=== PATIENT | male | born 2000 | race Caucasian/White ===

== ENCOUNTER 2022-04-13 16:37 | Emergency (ER) | payer OTHER, SELFPAY ==
[2022-04-13 17:15] VITALS: BP 115/61; PULSE 75; RESP 18; TEMP 36.8; O2SAT 98; BMI 22.8
--- NOTE | 2022-04-13 17:46 | HMH.EDUTC ---
[facility] [place] Disposition Clinical Impression: Cellulitis Qualifiers: Site of cellulitis: extremity Site of cellulitis of extremity: lower extremity Laterality: right Qualified Code(s): L03.115 - Cellulitis of right lower limb Disposition: Home, Self-Care Condition on Discharge: Good Instructions: Cellulitis, DI for Skin Abscess Additional Instructions: *Start antibiotic(s) immediately and be sure to take as ordered for the FULL length of time although you may be feeling better or start to see improvement in the next 24-48 hours *Monitor closely. Outlined redness so that you can monitor easier. Follow up immediately for new or worsening symptoms including but not limited to redness, swelling, streaking from site fever or chills. *Warm compress 15 minutes 3-4 times day *Never squeeze or pop these on your own. Seek immediate medical attention next time this occurs *Monitor Temp. Tylenol every 4 hours as needed and ibuprofen every 6 hours as needed (as long as your primary care doctor has told you that it is ok to take both. For fever, aches, pain. ER if no less that 101 despite Tylenol and ibuprofen Follow up with your family doctor/primary care physician in the next 48-72 hours if no improvement Straight to ER if any worsening of redness or fever chills or body aches Prescriptions: clindamycin HCL [Cleocin HCl] 300 mg PO Q6H 7 Days #28 cap Transmission Status: Pending to [id number] Mupirocin Calcium [Mupirocin 2% Cream 15gm] 1 applicatio TP TID 10 Days #15 gm Transmission Status: Pending to [id number] Referrals: Kaylan Rodgers [Primary Care Provider] - As needed Terry Covarrubias MD [Staff Physician] - Jethro Peoples MD [Staff Physician] - Time of Disposition: 18:03 Medical Decision Making - Mane Inquiry Pt receiving controlled substance: No Mane was queried for this patient: No Vital Signs: 04/13/22 17:15 Temperature 98.3 F Temperature Source Oral Pulse Rate [Right Brachial] 75 Respiratory Rate 18 Blood Pressure [Right Arm] 115/61 Blood Pressure Mean [Right Arm] 79 Blood Pressure Source [Right Arm] Automatic Cuff Blood Pressure Position [Right Arm] Sitting 02 Sat by Pulse Oximetry 98 Oxygen Delivery Method Room Air Orders (Tests/Meds): ORDERS Category Date Time Status Wound Culture and Gram Stain Stat Micro 04/13/22 17:25 Received [facility] [place] HPI - General Stated complaint: poss inf spot on R knee Time Seen by Provider: 04/13/22 17:46 Mode of Arrival: Ambulatory Source of Information: Patient Limitations: No Limitations Description of Symptoms (Recalled from Triage Doc. by RN): PATIENT C/O PAIN, SWELLING, AND REDNESS TO RIGHT KNEE X 1 WEEK. OPEN SORE WITH DRAINAGE NOTED HEENT Symptoms (Recalled from RN notes): No Resp Symptoms (Recalled from RN notes): No Skin Symptoms (Recalled from RN notes): Yes MS Symptoms (Recalled from RN notes): Yes Functional Status (Recalled from RN notes): WNL - History of Present Illness Provider Complaint: Patient states that he had a infected hair on the bottom of his knee for about a week States that earlier today he decided he would would mash it and pop it States that he did that now he is worried because it is draining and having some redness around it and he is worried he made it worse so he came in to get it checked out - Related Data Previous Rx's Medication Instructions Recorded Mupirocin Calcium [Mupirocin 2% 1 applicatio TP TID 10 Days #15 gm 04/13/22 Cream 15gm] clindamycin HCL [Cleocin HCl] 300 mg PO Q6H 7 Days #28 cap 04/13/22 Allergies Allergy/AdvReac Type Severity Reaction Status Date / Time No Known Allergies Allergy Verified 05/30/19 15:59 - Worker's Comp Is this a Worker's Comp case?: No [facility] History - Hepatitis A Screen Attestation statement:: This patient has been screened for Hepatitis A risk factors. I have reviewed the patient's past medical history: Yes Comment: ADHD Other Surgeries: Yes: Other Ampu
[2022-04-13 18:05] VITALS: BP 115/61; PULSE 75; RESP 18; TEMP 36.8; O2SAT 98
== END 2022-04-13 18:08 | disposition home or self-care (01) ==
PROVIDERS: Emergency Provider Nurse Practitioner; PCP Family Medicine
DX: L03.115 Cellulitis of right lower limb (principal)
CPT/HCPCS: 87070; 87205; 99212; G0463

== ENCOUNTER → 2023-01-20 12:52 | Outpatient (CLI) | payer SELFPAY | PROVIDERS: PCP Family Medicine; Visit Provider Nurse Practitioner Family | DX: Z02.4 Encounter for examination for driving license (principal) ==

== ENCOUNTER 2024-02-26 14:39 | Outpatient (CLI) | payer SELFPAY ==
[2024-02-26 15:35] VITALS: BMI 21.1
[2024-02-26 15:43] LABS: Color,Urine Amber (Yellow)
[2024-02-26 15:45] LABS: Apearance,Urine Clear (Clear)
[2024-02-26 15:46] LABS: Blood, Urine Negative (Negative); Glucose,Urine (UA) Negative (Negative); Ketones,Urine Negative (Negative); Protein,Urine Negative (Negative); Specific Gravity, Urine > 1.030 (1.005-1.030)
[2024-02-26 15:47] LABS: Bilirubin,Urine 1+ (Negative); UTC Leukocyte Esterase,Urine Negative (Negative); UTC Nitrate,Urine Negative (Negative); Urobilinogen,Urine 1 EU/dl (0.2)
== END 2024-02-26 23:59 | disposition home or self-care (01) ==
PROVIDERS: PCP Family Medicine; Visit Provider Physician Assistant
DX: Z02.4 Encounter for examination for driving license (principal)
CPT/HCPCS: 81003